=== PATIENT | female | born 1995 | race Caucasian/White ===

== ENCOUNTER 2017-01-26 00:23 | Emergency (ER) | payer OTHER ==
[~2017-01-26] VITALS: Ht 160 cm; Wt 44.5 kg
[2017-01-26 01:42] VITALS: BP 117/78
== END 2017-01-26 01:42 | disposition home or self-care (01) ==
LOC: ED 00:23
DX: S90.32XA Contusion of left foot, initial encounter (principal); W20.8XXA Other cause of strike by thrown, projected or falling object, initial encounter; Y93.89 Activity, other specified; Y99.8 Other external cause status; Y92.89 Other specified places as the place of occurrence of the external cause
CPT/HCPCS: J1885; Q0092

== ENCOUNTER 2020-04-06 06:17 | Emergency (ER) | payer MEDICAID ==
[~2020-04-06] VITALS: Ht 160 cm; Wt 49.4 kg
[2020-04-06 06:24] VITALS: Ht 160 cm; Wt 49.4 kg
[2020-04-06 07:53] VITALS: BP 114/73
== END 2020-04-06 07:53 | disposition home or self-care (01) ==
LOC: ED 06:17
DX: T16.1XXA Foreign body in right ear, initial encounter (principal); W45.8XXA Other foreign body or object entering through skin, initial encounter; Y93.89 Activity, other specified; Y92.89 Other specified places as the place of occurrence of the external cause; Y99.8 Other external cause status